=== PATIENT | male | born 1970 | race Caucasian/White ===

== ENCOUNTER 2018-09-12 03:43 | Emergency (ER) | payer OTHER ==
[2018-09-12] MEDS ORDERED: Lidocaine 1% w/Epinephrine 1:100K 20 ML VIAL ONE (04:01)
[2018-09-12] MEDS ORDERED: Bacitracin Zinc 1 Packet ONE (04:28)
--- NOTE | 2018-09-12 07:39 | RAD ---
Left forearm 2 views HISTORY: Laceration. Arm injury. FINDINGS: Radius and ulna are intact. Irregular pockets of gas in an area of soft tissue swelling reji ng the medial aspect of the distal forearm is consistent with laceration. No radiopaque foreign bodies are apparent. IMPRESSION: No acute osseous abnormalities are demonstrated.
== END 2018-09-12 06:59 | disposition home or self-care (01) ==
LOC: ERS 03:43
DX: S51.812A Laceration without foreign body of left forearm, initial encounter (principal); F31.9 Bipolar disorder, unspecified; F17.210 Nicotine dependence, cigarettes, uncomplicated; W26.8XXA Contact with other sharp object(s), not elsewhere classified, initial encounter
CPT/HCPCS: 12034; J2001